=== PATIENT | female | born 1990 ===

== ENCOUNTER 2019-06-09 10:15 | Inpatient (IN) | payer OTHER ==
[~2019-06-09] VITALS: Ht 157.5 cm; Wt 3.2 kg
[2019-06-21] MEDS ORDERED: PRENATAL CAPLE1 EAC1 PO (07:07)
[2019-06-21] MEDS ORDERED: IRON325 MG PO (07:08)
== END 2019-06-23 12:42 | disposition home or self-care (01) | DRG 785 ==
LOC: O/R 06-21 06:35 → SURG-SUITE 06-21 06:35 → OB/GYN 06-21 07:30 → SURG-SUITE 06-21 10:04 → OB/GYN 06-21 10:15 → SURG-SUITE 06-23 12:42
PROVIDERS: ADMIT Obstetrics & Gynecology Maternal & Fetal Medicine
PROC: 0UL70ZZ Occlusion of Bilateral Fallopian Tubes, Open Approach (ICD-10-PCS; 2019-06-21)
PROC: 4A1HXCZ Monitoring of Products of Conception, Cardiac Rate, External Approach (ICD-10-PCS; 2019-06-21)
PROC: 10D00Z1 Extraction of Products of Conception, Low, Open Approach (ICD-10-PCS; principal; 2019-06-21 07:30)
DX: O65.5 Obstructed labor due to abnormality of maternal pelvic organs (principal); O34.211 Maternal care for low transverse scar from previous cesarean delivery; Z3A.39 39 weeks gestation of pregnancy; Z37.0 Single live birth; Z30.2 Encounter for sterilization